=== PATIENT | female | born 1980 ===

== ENCOUNTER 2016-12-09 16:15 | Inpatient (IN) | payer OTHER ==
[2016-12-09 16:30] VITALS: BMI 31.0
[2016-12-09] MEDS ORDERED: Penicillin G 5 Million Unit Vial IVPB ONE (16:43)
[2016-12-09] MEDS ORDERED: Lactated Ringer's 1,000 ML IV SCH (16:45)
[2016-12-09 17:02] LABS: BASO # 0.1 K/uL (0.0-0.2); BASO % 1.1 % (0.0-2.0); EOS # 0.1 K/uL (0.0-0.7); EOS % 0.7 % (0.0-4.0); HEMATOCRIT 37.1 % (34.0-47.0); LYMPH # 2.3 K/uL (1.0-4.3); LYMPH % 20.1 % (20.0-40.0); MEAN CELL VOLUME 91.3 fL (81.0-99.0); MEAN CORPUSCULAR HEMOGLOBIN 30.9 pg (27.0-31.0); MEAN CORPUSCULAR HGB CONC 33.9 g/dL (33.0-37.0); MEAN PLATELET VOLUME 9.8 fL (7.2-11.7); MONO # 0.7 K/uL (0.0-0.8); MONO % 6.4 % (0.0-10.0); RED CELL DISTRIBUTION WIDTH 13.2 % (11.5-14.5); WHITE BLOOD COUNT 11.3 K/uL (4.8-10.8)
[2016-12-09 17:08] LABS: RBC URINE 1 /hpf (0-3); URINE BACTERIA MOD (<OCC); URINE BILIRUBIN 1+ (NEGATIVE); URINE BLOOD NEGATIVE (NEGATIVE); URINE GLUCOSE (UA) NORMAL (Normal); URINE KETONE TRACE mg/dL (NEGATIVE); URINE LEUKOCYTE ESTERASE NEG Leu/uL (Negative); URINE PROTEIN 2+ mg/dL (NEGATIVE); WBC URINE 4 /hpf (0-5)
[2016-12-09 17:09] LABS: CHLORIDE 104 mmol/L (98-107)
--- NOTE | 2016-12-09 17:09 | OBPN ---
Datetime: 12/09/2016 17:07 Presentation-Admit: Vertex IP Progress Note Comment: cervidil placed fht cat1 [place] occ ctrx sve 50/-3 Plan-continue to monitor Vital Signs Provider: Reviewed; Within Normal Limits FHR Category Provider Fetus A: Category I Dilatation, Provider: 1 Effacement, Provider: 50 Station, Provider: -3 Datetime: 12/09/2016 16:50 Contraction Comments Provider: irregular Gestation - Est Wks by US: 37.0 Weight - Estimated: 3200
[2016-12-09 17:10] LABS: SODIUM 134 mmol/L (132-148)
[2016-12-09 17:11] LABS: URINE COLOR YELLOW (YELLOW)
[2016-12-09 17:12] LABS: BILIRUBIN,TOTAL 0.5 mg/dL (0.2-1.3); GFR AFRICAN-AMERICAN > 60
[2016-12-09 17:13] LABS: ALB/GLOB RATIO 1.1 (1.0-2.1); ALKALINE PHOSPHATASE 116 U/L (38-126); ALT/SGPT 15 U/L (9-52); AST/SGOT 20 U/L (14-36); BLOOD UREA NITROGEN 10 mg/dL (7-17); CALCIUM 8.7 mg/dl (8.6-10.4); CARBON DIOXIDE 22 mmol/L (22-30); GLUCOSE,RANDOM 87 mg/dL (65-105); TOTAL PROTEIN 6.6 g/dL (6.3-8.3)
[2016-12-09] MEDS ORDERED: Oxytocin 20 units in LR 0 ML IV ONE (22:48)
[2016-12-09] MEDS ORDERED: Oxytocin 30 UNIT 0 UNITS/0 ML BAG IV ONE (22:48)
--- NOTE | 2016-12-10 06:58 | OBHP ---
Datetime: 12/09/2016 17:07 Presentation-Admit: Vertex Vital Signs Provider: Reviewed; Within Normal Limits FHR Category Provider Fetus A: Category I Dilatation, Provider: 1 Effacement, Provider: 50 Station, Provider: -3 Datetime: 12/09/2016 16:50 IP Adm Impression: Term, intrauterine IP Adm Impression Other: oligohydramnios IP Admit Plan: Admit to unit Admit Comment, IP Provider: chief complaint-abdominal pain, decreased movement HPI 36 y/o at 37 wga here with c/o abdominal pain and feeling less movement.Patient den ies vaginal bleeding or loss of fluid course AMA PMH denies PSH denies OBGYN HX ; [id number] Social hx denies tobacco,alcohol or illicit drug use Exam see exam section A/P 36 y/o at 37 wga in labor.Decreased movement.Oligohydramnios on ultraosund.MICHELLE 4 cm -admit -see orders Pelvic Type - PN: Adequate Extremities - PN: Normal Abdomen - PN: Normal Back - PN: Normal Lungs - PN: Normal Heart - PN: Normal Neurologic - PN: Normal General - PN: Normal Weight - Estimated: 3200 Contraction Comments Provider: irregular Gestation - Est Wks by US: 37.0 IP Hx Assessment: The History has been Reviewed and is Current IP Chief Complaint: Uterine contractions; Decreased movement Genitourinary Exam: Normal DTRs - PN: Normal
[2016-12-10] MEDS ORDERED: Oxytocin 30 UNIT 30 UNITS/500 ML BAG IV PRN (08:52)
[2016-12-10] MEDS ORDERED: Bupivacaine 0.125%/FentaNYL 200 ML EPI ONE (14:11)
[2016-12-10] MEDS ORDERED: Penicillin G 5 Million Unit Vial IVPB ONE (16:11)
[2016-12-10] MEDS ORDERED: Benzocaine/Menthol 20%-0.5% Topical Spray (60 ml) TOP PRN (17:06)
[2016-12-10] MEDS ORDERED: Oxycodone/Acetaminophen 5/325 mg Tab PO PRN ×2 (17:06)
--- NOTE | 2016-12-10 17:06 | OBDS ---
DELIVERY PERSONNEL Delivery Doctor: Beau Ivy MD MATERNAL INFORMATION Delivery Anesthesia: Epidural Medications in Delivery: PITOCIN 30UNITS IN N/S 500ML. Maternal Complications: None Provider Comments: pt was fully dilated, atraumatic, spentous deliveyr of head in MEREDITH positon,tight nuchal cord clamped and cut. Atraumatic, spontaneous dleive rof anterir followed by posterio shoulder followed by delivery of body. both oral an dnasal passags of baby bulb suctioned, Umbilcal cord clam ped and cut. Baby hadned to mother on abodmine with RN assistance. Cord blood collectedx 2.Spontaneou s deliver of intact placent with membranes. Fundus Firm. Goo dhemostaiss. Second degree perineal lac eratoin noted and repaired iwth 2-0 chormic Good hemostais,s no complicatoins Live male infant MEREDITH positoin Apgars 9,9 weight LABOR SUMMARY EDC: 12/30/2016 00:00 No. Babies in Womb: 1 Attempted: No Labor Anesthesia: Epidural LABOR INFORMATION Reason for Induction: Oligohydramnios Onset of Labor: 12/10/2016 05:00 Cervical Ripening Agents: Cervidil Oxytocin: Induction Group B Beta Strep: Not Done Antibiotics # of Doses: 1 Antibiotics Time of Last Dose: 1600 Steroids Given: None Reason Steroids Not Administered: Not Applicable MEMBRANES Membranes Rupture Method: Spontaneous Amniotic Fluid Color: Clear Amniotic Fluid Amount: Small Amniotic Fluid Odor: Normal STAGES OF LABOR Stage 3 hrs: 0 Stage 3 min: 8 Total Time in Labor hrs: 11 Total Time in Labor min: 50 VAGINAL DELIVERY Episiotomy: None Laceration Extension: Second Degree Laceration Type: Perineal Laceration Repair: Yes Laceration Repair Note: 2nd degree perineal laceration noted and repaired with 2-o chormic Initial Vag Sponge Count: 10 Final Vag Sponge Count: 10 Initial Vag Sharps Count: 0 Final Vag Sharps Count: 1 Sponge Count Correct: Yes; Vaginal Sweep Performed BABY A INFORMATION Infant Delivery Date/Time: 12/10/2016 16:42 Method of Delivery: Vaginal Born in Route : No : N/A Forceps: N/A Vacuum Extraction: N/A Shoulder Dystocia : No SHOULDER DYSTOCIA BABY A Infant Delivery Date/Time: 12/10/2016 16:42 PRESENTATION/POSITION BABY A Presentation: Cephalic Cephalic Presentation: Vertex Vertex Position: Right Occipital Anterior Breech Presentation: N/A PLACENTA INFORMATION BABY A Placenta Delivery Time : 12/10/2016 16:50 Placenta Method of Delivery: Spontaneous Placenta Status: Delivered SCORES BABY A Heart Rate 1 min: >100 bpm Resp Effort 1 min: Good Cry Reflex Irritability 1 min: Cough or Sneeze or Pulls Away Muscle Tone 1 min: Active Motion Color 1 min: Body [place], Extremities Blue SCORE 1 MIN: 9 Heart Rate 5 min: >100 bpm Resp Effort 5 min: Good Cry Reflex Irritability 5 min: Cough or Sneeze or Pulls Away Muscle Tone 5 min: Active Motion Color 5 min: Body [place], Extremities Blue SCORE 5 MIN: 9 INFORMATION BABY A Gestational Age at Delivery: 37.0 Gestational Status: Term Outcome : Liveborn Condition : Stable Sex: Male IDENTIFICATION/MEDS BABY A ID Band Number: [id number] ID Band Location: Left Leg; Left Arm Sensor Applied: Yes Sensor Number: [id number] Sensor Location : Cord Clamp Vitamin K Given : Aquamephyton 1 mg IM Erythromycin Given: Given Both Eyes CORD INFORMATION BABY A No. Cord Vessels: 3 Nuchal Cord : Around Neck x1, Tight Nuchal Cord Other: N/A True Knot: 0 Cord Blood Taken: Yes Infant Suction: Mouth; Nose
--- NOTE | 2016-12-10 17:20 | OBPN ---
Datetime: 12/10/2016 16:27 IP Progress Impression: Non-reassuring heart rate IP Procedures: Sterile Vag Exam IP Progress Plan: Continue present management; Anticipate Vaginal Delivery Contraction Comments Provider: 1-2 Presentation- Admit Other: IP Progress Note Comment: FHR noted for deceleration to 70bpm x 2 min (slow recovery). Patient recei ananda in left lateral position. Pitocin stopped and oxygen mask being placed. V.E. at 1603, 8-9 cm/100/0. With scalp stimulation, FHR improved to 140s bpm. Decel recurred to 70 bpm again x 1.5 min with slow recovery. Patient remained in left lateral position; repeat V.E. now f ully dilated Assessment: 36 yo P1011, 37w 1d, IOL for oligohydramnios at end of Stage 1 of labor. deceler ation noted - probable rapid descent. GBS (+) - S/P 1 dose of penicillin. Category II tracing - impro ving with intrauterine resuscitation. Patient is clinicallystable. Plan: 1) Anticpate vaginal delivery - Dr Ivy notified Dilatation, Provider: 10 Effacement, Provider: 100 Station, Provider: 1 Datetime: 12/09/2016 17:07 IP Procedures Other: left lateral, oxygen by mask; pitocin discontinued
[2016-12-11 09:00] LABS: BASO # 0.1 K/uL (0.0-0.2); BASO % 0.3 % (0.0-2.0); EOS # 0.1 K/uL (0.0-0.7); EOS % 0.8 % (0.0-4.0); HEMATOCRIT 40.6 % (34.0-47.0); LYMPH # 2.7 K/uL (1.0-4.3); MEAN CELL VOLUME 91.8 fL (81.0-99.0); MEAN CORPUSCULAR HEMOGLOBIN 30.8 pg (27.0-31.0); MEAN CORPUSCULAR HGB CONC 33.6 g/dL (33.0-37.0); MEAN PLATELET VOLUME 10.1 fL (7.2-11.7); MONO # 1.3 K/uL (0.0-0.8); MONO % 7.5 % (0.0-10.0); RED CELL DISTRIBUTION WIDTH 12.9 % (11.5-14.5)
[2016-12-11 09:04] LABS: WHITE BLOOD COUNT 17.8 K/uL (4.8-10.8)
[2016-12-11 16:21] VITALS: O2SAT 98
[2016-12-12 08:09] VITALS: BP 118/76; PULSE 70; RESP 18; TEMP 97.5
[2016-12-12 08:09] LABS: BASO # 0.1 K/uL (0.0-0.2); BASO % 0.7 % (0.0-2.0); EOS # 0.2 K/uL (0.0-0.7); EOS % 2.1 % (0.0-4.0); HEMATOCRIT 37.2 % (34.0-47.0); LYMPH # 3.2 K/uL (1.0-4.3); LYMPH % 30.8 % (20.0-40.0); MEAN CELL VOLUME 92.3 fL (81.0-99.0); MEAN CORPUSCULAR HEMOGLOBIN 31.1 pg (27.0-31.0); MEAN CORPUSCULAR HGB CONC 33.8 g/dL (33.0-37.0); MEAN PLATELET VOLUME 9.9 fL (7.2-11.7); MONO # 0.7 K/uL (0.0-0.8); RED CELL DISTRIBUTION WIDTH 12.9 % (11.5-14.5); WHITE BLOOD COUNT 10.3 K/uL (4.8-10.8)
--- NOTE | 2016-12-12 09:05 | CP.PCM.PN ---
Subjective - Date & Time of Evaluation Date of Evaluation: 12/11/16 Time of Evaluation: 08:00 - Subjective Subjective: pt seen and examined and reports pain is controlled iwht medication. denies any bowel or bladder complaints. pt ambuating, voiiding, denie sany lightheandess, dizzyness, CP, SOB. Pt reports small vaginal bleeding. Objective - Vital Signs/Intake and Output Vital Signs (last 24 hours): Temp Pulse Resp BP Pulse Ox 97.5 F L 70 18 118/76 98 12/12/16 08:00 12/12/16 08:00 12/12/16 08:00 12/12/16 08:00 12/12/16 08:00 - Medications Medications: Current Medications Acetaminophen (Tylenol 325mg Tab) 650 mg PO Q6 PRN PRN Reason: Fever >100.4 F Benzocaine/Menthol (Dermoplast 20%-0.5%) 0 ml TOP PRN PRN PRN Reason: Perineal Discomfort Last Admin: 12/11/16 00:22 Dose: 60 ml Docusate Sodium (Colace) 100 mg PO BID [facility] Last Admin: 12/11/16 17:23 Dose: Not Given Lactated Ringer's (Lactated Ringer's) 1,000 mls @ 125 mls/hr IV .Q8H [facility] Last Admin: 12/09/16 16:45 Dose: 125 mls/hr Oxytocin (Pitocin) 30 units in 500 mls @ 2 mls/hr IV .Q24H PRN; Protocol; 0.002 UNIT/MIN PRN Reason: Labor Last Admin: 12/10/16 09:00 Dose: 2 mls/hr Ibuprofen (Motrin Tab) 600 mg PO Q6 PRN PRN Reason: Pain, Mild (1-3) Last Admin: 12/11/16 09:57 Dose: 600 mg Lactulose (Enulose) 10 gm PO DAILY [facility] Last Admin: 12/11/16 10:00 Dose: Not Given Oxycodone/Acetaminophen (Percocet 5/325 Mg Tab) 1 tab PO Q4H PRN PRN Reason: Pain, moderate (4-7) Stop: 12/13/16 17:07 Oxycodone/Acetaminophen (Percocet 5/325 Mg Tab) 2 tab PO Q4H PRN PRN Reason: Pain, severe (8-10) Stop: 12/13/16 17:07 Sennosides (Senokot Tab) 17.2 mg PO DAILY [facility] Last Admin: 12/11/16 10:01 Dose: Not Given - Labs Labs: 12/12/16 08:01 12/09/16 16:57 - Constitutional Appears: Well, Non-toxic - Head Exam Head Exam: ATRAUMATIC, NORMAL INSPECTION - Eye Exam Eye Exam: EOMI, Normal appearance - ENT Exam ENT Exam: Mucous Membranes Moist - Neck Exam Neck Exam: Full ROM - Respiratory Exam Respiratory Exam: Clear to Ausculation Bilateral, NORMAL BREATHING PATTERN - Cardiovascular Exam Cardiovascular Exam: +S1, +S2 - GI/Abdominal Exam GI & Abdominal Exam: Soft, Normal Bowel Sounds Additional comments: no guarding, no reboudn tendernes,s no rigidity Fundus: firm, below umbilcius moderate lochia, non foul smelling - Extremities Exam Extremities Exam: Full ROM - Neurological Exam Neurological Exam: CN II-XII Intact, Oriented x3 Assessment and Plan - Assessment and Plan (Free Text) Assessment: s/p NSVDP PPD #1 doing well 1. pain mangment 2. regular diet 3. encourage breast feedign and ambuation 4. f/u Am cbc 5. andtice d/c in am
--- NOTE | 2016-12-12 10:42 | OBPPN ---
Datetime: 12/12/2016 10:39 PP Pain Prov: Within normal limits PP Nausea Prov: Denies PP Flatus Prov: Yes PP BM Prov: No PP Breasts Prov: Normal PP Heart Prov: Normal PP Lungs Prov: Normal PP Abdomen/Uterus Prov: Normal PP Lochia Prov: Normal PP Vulva/Perineum Prov: Normal PP CVA Tenderness Prov: Normal PP Extremities Prov: Normal PP C/S Incision Prov: Not Applicable PP Progress Prov: Normal PP Comments Phys Exam Prov: breast non tenroged b/l abd; soft, nt/nd fundus; firm, belowlevel of umbilcs, minimal lochia, non foul smelling ext no calf tenderness, negateive hira's sign PP Progress Note Prov: pt seen adn examined reports pian controlled, dnei sny lightheadness, dizzyne ss, PC, SOB, bowel or bladder complaints. pt is breast feeding VSS PE see above A/P s/p PPD #2stabel for dicharge d/c home rto 6 weeks precautios given Vital Signs Provider PP: Reviewed; Within Normal Limits
--- NOTE | 2016-12-12 10:44 | OBDCSUM ---
Datetime: 12/12/2016 10:41 Discharged to, Provider: Home Follow up at, Provider: Dr Ivy Disch Instr Activity: Normal activity Disch Instr Diet: Regular Discharge Instructions, Provider: Routine instructions given Discharge Diagnosis, Provider: Term Delivered Discharge Time: 12/12/2016 10:41 Follow up in weeks, Provider: 6 weeks Disch Referrals: None Contraception discussed, Prov: Yes Disch Activity Restrictions: No sexual activity; Nothing in vagina - [place], tampons, douche Contraception after Delivery: Not Planning to Use
[2016-12-12] MEDS ORDERED: Measles, Mumps, and Rubella 0.5 ML VIAL SC ONE (14:30)
[2016-12-12] MEDS ORDERED: ceFAZolin 1 gm FROZEN Premix 1 GM/50 ML ML IVPB SCH (22:00)
== END 2016-12-12 18:30 | disposition home or self-care (01) | DRG 775 ==
LOC: C.EROB 16:15 → C.4D 16:38 → C.4M 12-10 20:14
PROVIDERS: ADMIT Obstetrics & Gynecology; ATTEND Obstetrics & Gynecology
PROC: 10E0XZZ Delivery of Products of Conception, External Approach (ICD-10-PCS; principal; 2016-12-10)
PROC: 0KQM0ZZ Repair Perineum Muscle, Open Approach (ICD-10-PCS; 2016-12-10)
PROC: 3E0P7GC Introduction of Other Therapeutic Substance into Female Reproductive, Via Natural or Artificial Opening (ICD-10-PCS; 2016-12-10)
DX: O41.03X0 Oligohydramnios, third trimester, not applicable or unspecified (principal); O09.523 Supervision of elderly multigravida, third trimester; O69.1XX0 Labor and delivery complicated by cord around neck, with compression, not applicable or unspecified; O70.1 Second degree perineal laceration during delivery; Z3A.37 37 weeks gestation of pregnancy; Z37.0 Single live birth